=== PATIENT | female | born 1965 | race Caucasian/White ===

== ENCOUNTER 2018-06-13 07:38 | Day surgery (SDC) | payer OTHER ==
[2018-06-07 15:01] VITALS: BMI 26.9
[2018-06-13] MEDS ORDERED: MIDAZOLAM HCL 2 MG/2 ML SINGLE DOSE VIAL ONE (08:39)
[2018-06-13] MEDS ORDERED: BUPIVACAINE HCL/PF 2.5 MG/ML - 30 ML VIAL IJ ONE (08:41)
[2018-06-13] MEDS ORDERED: ONDANSETRON 4 MG/2 ML VIAL ONE ×2 (09:01→09:32)
[2018-06-13] MEDS ORDERED: DEXAMETHASONE SOD PHOSPHATE 4 MG/1 ML VIAL ONE (09:01)
[2018-06-13] MEDS ORDERED: KETOROLAC TROMETHAMINE 30 MG/1 ML VIAL ONE (09:01)
[2018-06-13] MEDS ORDERED: ePHEDrine SULFATE 50 MG/1 ML AMPULE ONE (09:01)
[2018-06-13] MEDS ORDERED: ONDANSETRON 4 MG/2 ML VIAL IVPUSH PRN (09:41)
[2018-06-13] MEDS ORDERED: PROMETHAZINE HCL 25 MG/1 ML VIAL IVPUSH PRN (09:41)
[2018-06-13] MEDS ORDERED: oxyCODONE HCL 5 MG TABLET PO PRN ×2 (09:41)
--- NOTE | 2018-06-13 09:53 | OP ---
DATE OF OPERATION: 06/13/2018 PREOPERATIVE DIAGNOSES: 1. Right carpal tunnel syndrome. 2. Right thumb trigger finger. POSTOPERATIVE DIAGNOSES: 1. Right carpal tunnel syndrome. 2. Right thumb trigger finger. OPERATIVE PROCEDURE: 1. Right endoscopic carpal tunnel release. 2. Right thumb trigger finger release. ANESTHESIA: General. COMPLICATIONS: None. ESTIMATED BLOOD LOSS: Minimal. INDICATIONS FOR PROCEDURE: The patient is a 53-year-old female with the above findings indicated for operative treatment. Of note, she had mentioned to me in the office that her thumb was starting to cause pain, but it has evolved and now is actively triggering. On examination, she has a trigger thumb. I discussed the options of this with her, and she decided that since we were operating on this hand, she would like to have the trigger thumb release done at the same time, so we decided to proceed with a right endoscopic carpal tunnel release and a right trigger thumb release. Risks, benefits, and alternatives of both procedures were discussed with the patient at length, and proper informed consent was obtained. DESCRIPTION OF PROCEDURE: After preoperative identification of the patient, correct operative site, patient was brought to the operating room, placed supine on the table with bony prominences were padded. General anesthesia was given. Right upper extremity was prepped and draped in the usual sterile fashion. A well-padded tourniquet was placed over the sterile prep. Esmarch bandage used to exsanguinate right upper extremity. Tourniquet was inflated to 250 mmHg. Transverse incision made over the proximal wrist crease ulnar to the palmaris longus tendon to protect the palmar cutaneous nerve. The antebrachial fascia was divided and the carpal canal was entered. Hamate finder dilators were used to prepare the canal, and an elevator was used to free any soft tissue off the undersurface of the transverse carpal ligament. MicroAire endoscopic carpal tunnel release system was then used and inserted to the distal edge of the transverse carpal ligament. At all points throughout the procedure, excellent visualization was achieved, and at no point was any soft tissue allowed to interpose between the transverse carpal ligament and the blade. The blade was then deployed and the transverse carpal ligament was divided, and the distal 4 cm of the antebrachial fascia were also divided under direct visualization. This provided complete release of the median nerve at the wrist. The wound was repaired with 4-0 Monocryl suture. Steri-Strips were placed. A second transverse incision was made over the right thumb A1 alayna. Incision was taken sharply through the skin with blunt dissection of subcutaneous tissues. A1 alayna was identified and divided longitudinally. Thumb was flexed, and there was no tendon excursion without any catching. Wound was irrigated and repaired with 5-0 fast-absorbing plain gut suture. Sterile dressings were applied. Patient was brought to recovery in stable condition. She tolerated the procedure well. DEMETRA AUGUST M.D. [id number]
[2018-06-13 12:13] VITALS: PULSE 58; TEMP 97.3
[2018-06-13 12:16] VITALS: BP 106/62
== END 2018-06-13 10:55 | disposition home or self-care (01) ==
LOC: FASU 07:38
PROVIDERS: ATTEND Orthopaedic Surgery Hand Surgery
PROC: 0LN70ZZ Release Right Hand Tendon, Open Approach (ICD-10-PCS; 2018-06-13)
PROC: 01N50ZZ Release Median Nerve, Open Approach (ICD-10-PCS; principal; 2018-06-13 09:03)
DX: G56.01 Carpal tunnel syndrome, right upper limb (principal); M65.311 Trigger thumb, right thumb
CPT/HCPCS: 84703; 94760

== ENCOUNTER 2018-10-03 06:15 | Day surgery (SDC) | payer OTHER ==
[2018-09-26 10:29] VITALS: BMI 25.7
[2018-10-03] MEDS ORDERED: SUCCINYLCHOLINE CHLORIDE 200 MG/10 ML SYRINGE ONE (07:08)
[2018-10-03] MEDS ORDERED: PROPOFOL 20 ML ONE ×3 (07:08)
[2018-10-03] MEDS ORDERED: MIDAZOLAM HCL 2 MG/2 ML SINGLE DOSE VIAL ONE (07:08)
[2018-10-03] MEDS ORDERED: BUPIVACAINE HCL 0.25% 125 MG/50 ML VIAL ONE (07:14)
[2018-10-03] MEDS ORDERED: DEXAMETHASONE SOD PHOSPHATE 4 MG/1 ML VIAL ONE (07:19)
[2018-10-03] MEDS ORDERED: ceFAZolin SODIUM 1 GM VIAL ONE (07:19)
[2018-10-03] MEDS ORDERED: ONDANSETRON 4 MG/2 ML VIAL ONE ×2 (07:19→09:48)
[2018-10-03] MEDS ORDERED: ePHEDrine SULFATE 50 MG/1 ML AMPULE ONE (08:04)
[2018-10-03] MEDS ORDERED: GUM MASTIC/STORAX/MSAL/ALCOHOL 1 DRP DROPSBTL MC ONE (08:25)
[2018-10-03] MEDS ORDERED: oxyCODONE HCL 5 MG TABLET PO PRN (08:59)
[2018-10-03] MEDS ORDERED: ONDANSETRON 4 MG/2 ML VIAL IVPUSH PRN (08:59)
[2018-10-03] MEDS ORDERED: PROMETHAZINE HCL 25 MG/1 ML VIAL IVPUSH PRN (08:59)
[2018-10-03] MEDS ORDERED: oxyCODONE HCL 5 MG TABLET ONE ×2 (09:21→10:39)
[2018-10-03] MEDS: oxyCODONE HCL 5 MG TABLET PO PRN ×2 (09:22→10:40)
[2018-10-03 12:27] VITALS: TEMP 97.5
[2018-10-03 12:35] VITALS: BP 100/64; PULSE 58
--- NOTE | 2018-10-04 09:09 | OP ---
DATE OF OPERATION: 10/03/2018 PREOPERATIVE DIAGNOSIS: Left carpal tunnel syndrome. POSTOPERATIVE DIAGNOSIS: Left carpal tunnel syndrome. OPERATIVE PROCEDURE: Left carpal tunnel release, endoscopic. SURGEON: Branden Paul MD CLINICAL ALLERGIST: RONNELL Winslow ANESTHESIA: General. COMPLICATIONS: None. ESTIMATED BLOOD LOSS: Minimal. INDICATIONS FOR PROCEDURE: The patient is a 53-year-old female with the above findings, indicated for operative treatment. The risks, benefits, and alternatives were discussed with the patient at length, and proper informed consent was obtained. PROCEDURE: After proper identification of the patient and the correct operative site, the patient was brought to the operating room and placed supine on the operating table with prominences well padded. General anesthesia was provided by the anesthesiologist and adequate for the procedure. Left upper extremity was prepped and draped in the usual sterile fashion. Esmarch bandage used to exsanguinate the right upper extremity. Tourniquet inflated to 250 mmHg. Using previously drawn anatomic landmarks, a transverse incision made over the proximal wrist crease. Incision was taken sharply through the skin extending only to the palmaris longus tendon to protect the palmar cutaneous nerve. The antebrachial fascia was identified and divided transversely and elevated. The MicroAire Endoscopic Carpal Tunnel Release System was then used. Elevator was used to repair the canal along with hamate finders and dilators. This was done bluntly and gently. The endoscope was then inserted through the distal aspect of the transverse carpal ligament, which was positively identified visually as well as palpably. The blade was then deployed, and the transverse carpal ligament was released. At all times throughout the procedure, excellent visualization was achieved, and at no time was any soft tissue allowed to interpose between the transverse carpal ligament and the blade. Using a mini-open technique, the distal 4 cm of antebrachial fascia were then also divided to complete the release of the median nerve at the wrist. Wound was irrigated with saline and repaired with 5-0 Monocryl suture. Sterile dressings were applied. The patient was brought to the recovery room in stable condition. She tolerated the procedure well. Nely ELLSWORTH/[id number]
== END 2018-10-03 11:30 | disposition home or self-care (01) ==
LOC: FASU 06:15
PROVIDERS: ATTEND Orthopaedic Surgery Hand Surgery
PROC: 01N54ZZ Release Median Nerve, Percutaneous Endoscopic Approach (ICD-10-PCS; principal; 2018-10-03 08:15)
DX: G56.02 Carpal tunnel syndrome, left upper limb (principal)
CPT/HCPCS: 81025; 94760

== ENCOUNTER 2020-01-08 06:41 | Day surgery (SDC) | payer OTHER ==
--- OUTSIDE RECORDS SUMMARY | 2019-12-18 08:18 | XMS ---
:1965 Author Organization [facility] Care Team Providers Name Role Phone Leonel Carrera MD Unavailable Unavailable Florence Archibald MD Unavailable Unavailable Shavonne Haywood MD Unavailable Unavailable Saúl Crain MD Unavailable Unavailable Humphrey Fernández MD Unavailable Unavailable Re-disclosure Warning The records that you are about to access may contain information from federally- assisted alcohol or drug abuse programs. If such information is present, then the following federally mandated warning applies: This information has been disclosed to you from records protected by federal confidentiality rules (42 CFR part 2). The federal rules prohibit you from making any further disclosure of this information unless further disclosure is expressly permitted by the written consent of the person to whom it pertains or as otherwise permitted by 42 CFR part 2. A general authorization for the release of medical or other information is NOT sufficient for this purpose. The Federal rules restrict any use of the information to criminally investigate or prosecute any alcohol or drug abuse patient.The records that you are about to access may contain highly sensitive health information, the redisclosure of which is protected by Article 27-F of the [facility] Public Health law. If you continue you may haveaccess to information: Regarding HIV / AIDS; Provided by facilities licensed or operated by the [facility] Office of Mental Health; or Provided by the [facility] Office for People With Developmental Disabilities. If such information is present, then the following [facility] mandated warning applies: This information has been disclosed to you from confidential records which are protected by state law. State law prohibits you from making any further disclosure of this information without the specific written consent of the person to whom it pertains, or as otherwise permitted by law. Any unauthorized further disclosure in violation of state law may result in a fine or fdc sentence or both. A general authorization for the release of medical or other information is NOT sufficient authorization for further disclosure. Encounters Encounter Providers Location Date Indications Data Source(s ) Outpatient Attender: Leonel 11/27/2019 Chronic pain in [place] [facility] YAN 07:00:00 AM left foot Hospital EDT (M79.672,G89.29)no prev Chronic pain in left foot (M79.672,G89.2 9)no prev Outpatient Attender: Florence 10/29/2019 04:29:00 SLEEP APNE A [place] MDAttender: PM EDT Hospit al Saúl Breann MDReferrer: Saúl Crain MD SLEEP APNEA Outpatient Attender: Saúl 09/18/2019 03:57:00 DYSPNEA ON [place] Y[facility] PM EDT EXERTION Hospital DYSPNEA ON EXERTION Outpatient Attender: Humphrey 07/15/2019 DIAGNOSTIC [place] [facility] 03:00:00 PM EDT [facility]ED [facility] Hospital MDAttender: Shavonne Haywood MD DIAGNOSTIC TARGETED RIGHT Outpatient Attender: Shavonne 01/02/2019 10:05:00 AM SOB [facility] YAN EDT SOB Outpatient Attender: Shavonne 12/26/2018 07:37:00 RTNE M/S RX OP [place] [facility] AM EDT DM Hospital [place] M/[place] [facility] [place] Providers Payer name Policy type Policy ID Covered Covered democrat's Policy P fritz / Coverage democrat ID relationship to Castañeda Inf ormation type castañeda [place] [id number] PT [id number] [facility] [id number] PT [id number] [address] [facility] [place] [id number] PT [id number] [facility] [id number] PT [id number] 400 [facility] [id number] PT [id number] 400 [facility] MEDICAID [id number] [place] [id number] [facility] MEDICARE [id number] [place] [id number] Problems, Conditions, and Diagnoses Code Display Name Description Problem Type Effective Dates Data Source(s) M19.072 Primary M19.072 Diagnosis 11/27/2019 [place] osteoarthritis, left 06:46:00 AM EDT Hospital ankle and foot M85.672 Other cyst of bone, M85.672 Diagnosis 11/27/2019 [facility] left ankle and foot 06:46:00 AM EDT Hospital J45.909 Unspecified asthma, J45.909 Diagnosis 09/18/2019 [place] uncomplicated 03:57:00 PM EDT Hospit al Z03.89 Encounter for Z03.89 Diagnosis 07/15/2019 [place] observation for 02:27:00 PM EDT Hosp ital other suspected diseases and conditions ruled out I25.9 Chronic ischemic I25.9 Diagnosis 01/02/[address] [place] heart disease, 10:05:00 AM EDT Hospi belkis unspecified R06.02 Shortness of breath R06.02 Diagnosis 01/02/2019 [place] 10:05:00 AM EDT Hospital Z80.3 Family history of Z80.3 Diagnosis 12/26/2018 [place] malignant neoplasm 07:37:00 AM EDT H ospital of breast R92.2 Inconclusive R92.2 Diagnosis 12/26/2018 [place] mammogram 07:37:00 AM EDT Hospital N60.01 Solitary cyst of N60.01 Diagnosis 12/26/[address] [place] right breast 07:37:00 AM EDT Hospita l Z12.31 Encounter for Z12.31 Diagnosis 12/26/2018 [facility] [place] [facility] screening mammogram 07:37:00 AM EDT Hospital for malignant neoplasm of breast Results ID Date Data Source [id number] 06/12/2019 12:00:00 AM EDT [facility] Name Value Range Interpretation Code Description Data [facility] Supporting Document(s ) 2019-nCoV [facility] RNA XXX MEGAN+probe- Imp This lab was ordered by [facility] and reported by [employer] Procedure
[2020-01-02 09:07] VITALS: BMI 27.4
--- OUTSIDE RECORDS SUMMARY | 2020-01-08 06:45 | XMS ---
:1965 Author Organization [facility] Care Team Providers Name Role Phone Leonel Carrera MD Unavailable Unavailable Florence Archibald MD Unavailable Unavailable Saúl Crain MD Unavailable Unavailable Shavonne Haywood MD Unavailable Unavailable Humphrey Fernández MD Unavailable [...] is protected by Article 27-F of the [facility] Public Health law. If you continue you may haveaccess to information: Regarding HIV / AIDS; Provided by facilities licensed or operated by the [facility] Office of Mental Health; or Provided by the [facility] Office for People With Developmental Disabilities. If such information is present, then the following [facility] mandated warning applies: This information has been [...] law may result in a fine or half-way sentence or both. A general authorization for the release of medical or other information is NOT sufficient authorization for further disclosure. Encounters Encounter Providers Location Date Indications Data Source(s ) Outpatient Attender: Shavonne 12/30/2019 SCREENING [facility] [facility] Haywood MD 09:00:00 AM MAMMO/SONO Hospital EDT SCRE[facility]ING [facility] MAMMO/SONO Outpatient Attender: Leonel 11/27/2019 Chronic pain in left foot [facility] Carrera MD 07:00:00 AM EDT (M79.672,G89.29)no prev Hospital Chronic pain in left foot (M79.672,G89.2 9)no prev Outpatient Attender: Florence 10/29/2019 04:29:00 SLEEP APNE A [place] MDAttender: PM EDT Hospit al Saúl Crain MDReferrer: Saúl Crain MD SLEEP APNEA Outpatient Attender: Saúl 09/18/2019 03:57:00 DYSPNEA ON [place] YAN PM EDT EXERTION Hospital DYSPNEA ON EXERTION Outpatient Attender: Humphrey 07/15/2019 DIAGNOSTIC [place] 03:00:00 PM EDT TARGETED RIGHT Hospital MDAttender: Shavonne Haywood MD DIAGNOSTIC TARGETED RIGHT US Outpatient Attender: Shavonne 01/02/2019 10:05:00 AM SOB [facility] YAN EDT SOB Outpatient Attender: Shavonne 12/26/2018 07:37:00 RTNE M/S RX OP [place] [facility] YAN AM EDT DM Hospital RTNE M/S RX OP G Insurance Providers Payer name Policy type Policy ID Covered Covered republican's Policy P fritz / Coverage republican ID relationship to Castañeda Inf ormation type castañeda [facility] MEDICAID [id number] SP [id number] [facility] [id number] PT [id number] 400 [facility] [id number] PT [id number] 400 [facility] [id number] PT [id number] 400 [facility] [id number] PT [id number] 400 [facility] [id number] PT [id number] 400 [facility] [id number] PT [id number] 400 [facility] [place]ICAID [id number] [place] [id number] [employer] MEDICARE [id number] Problems, Conditions, and Diagnoses Code Display Name Description Problem Type Effective Dates Data Source(s) M19.072 Primary M19.072 Diagnosis 11/27/2019 [place] osteoarthritis, left 06:46:00 AM EDT Hospital ankle and foot M85.672 Other cyst of bone, M85.672 Diagnosis 11/27/2019 [place] left ankle and foot 06:46:00 AM EDT Hospital J45.909 Unspecified asthma, J45.909 Diagnosis 09/18/2019 [place] uncomplicated 03:57:00 PM EDT Hospit al Z03.89 Encounter for Z03.89 Diagnosis 07/15/2019 [facility] s observation for 02:27:00 PM EDT Hosp ital other suspected diseases and conditions ruled out I25.9 Chronic ischemic I25.9 Diagnosis 01/02/[address] [place] [address] [place] heart disease, 10:05:00 AM EDT Hospi belkis unspecified R06.02 Shortness of breath R06.02 Diagnosis 01/02/2019 [place] 10:05:00 AM EDT Hospital Z80.3 Family history of Z80.3 Diagnosis 12/26/2018 [place] malignant neoplasm 07:37:00 AM EDT H ospital of breast R92.2 Inconclusive R92.2 Diagnosis 12/26/2018 [place] mammogram 07:37:00 AM EDT Hospital N60.01 Solitary cyst of N60.01 Diagnosis 12/26/[address] [place] right breast 07:37:00 AM EDT Hospita l Z12.31 Encounter for Z12.31 Diagnosis 12/26/2018 [facility] s screening mammogram 07:37:00 AM EDT Hospital for malignant neoplasm of breast Results ID Date Data Source [id number] 01/04/2020 12:10:00 PM EDT [facility] Name Value Range Interpretation Description Data Sup porting Code Source(s) Document(s ) SARS [facility] coronavirus 2 RNA This lab was ordered by [facility] and reported by [facility]. ID Date Data Source [id number] 06/12/2019 12:00:00 AM EDT [facility] Name Value Range Interpretation Code Description Data [facility]sa rce(s) Supporting Document(s ) 2019-nCoV [facility] RNA XXX MEGAN+probe- Imp This lab was ordered by [facility] and reported by [employer] Procedure
[2020-01-08] MEDS ORDERED: LIDOCAINE HCL 2% (20ML MULTI-DOSE VIAL) ONE (07:19)
[2020-01-08] MEDS ORDERED: ONDANSETRON 4 MG/2 ML VIAL IVPUSH PRN (07:59)
[2020-01-08] MEDS ORDERED: oxyCODONE HCL 5 MG TABLET PO PRN ×2 (07:59)
[2020-01-08] MEDS ORDERED: ACETAMINOPHEN 325 MG TABLET (FP) PO PRN (07:59)
[2020-01-08] MEDS ORDERED: LACTATED RINGERS SOLUTION 1,000 ML IV SCH (08:00)
[2020-01-08] MEDS ORDERED: ONDANSETRON 4 MG/2 ML VIAL ONE (08:07)
[2020-01-08] MEDS ORDERED: MIDAZOLAM HCL 2 MG/2 ML SINGLE DOSE VIAL ONE ×2 (08:07)
[2020-01-08] MEDS ORDERED: DEXAMETHASONE SOD PHOSPHATE 4 MG/1 ML VIAL ONE (08:07)
[2020-01-08] MEDS ORDERED: PROPOFOL 20 ML ONE (08:07)
[2020-01-08 09:09] VITALS: TEMP 97.8
[2020-01-08 09:31] VITALS: BP 108/67; PULSE 64
--- NOTE | 2020-01-08 11:29 | OP ---
DATE OF OPERATION: 01/08/2020 PREOPERATIVE DIAGNOSES: 1. Left thumb trigger finger. 2. Left long trigger finger. POSTOPERATIVE DIAGNOSES: 1. Left thumb trigger finger. 2. Left long trigger finger. OPERATIVE PROCEDURE: 1. Left thumb trigger finger release. 2. Left long trigger finger release. SURGEON: Branden August MD ANESTHESIA: Local with sedation. COMPLICATIONS: None. ESTIMATED BLOOD LOSS: Minimal. INDICATIONS FOR PROCEDURE: Frnri[age]huvo[age]ehnh-old female with the above finding indicated for operative treatment. Risks, benefits, alternatives were discussed with her at length. Proper informed consent was obtained. DESCRIPTION OF PROCEDURE: After preoperative identification of the patient, correct operative site, patient brought to the operating room and placed on the table with all prominences well padded. Sedation and local anesthesia were given. Left upper extremity was prepped and draped in sterile fashion. Well-padded tourniquet was placed over the sterile prep. Esmarch bandage used to exsanguinate the left upper extremity. Tourniquet was inflated to 250 mmHg. Longitudinal incision was made over the A1 alayna of the long finger, transverse incision over the A1 alayna to the thumb. Both incisions were made with sharp incision, with blunt dissection down to the A1 alayna. A1 pulleys were identified, then the neurovascular structures were carefully dissected. The A1 pulleys were divided. Patient was asked to flex and extend both of the fingers, and no further triggering occurred. Wounds were repaired with 5-0 fast-absorbing plain gut suture as well as Dermabond. Sterile dressings were applied. Patient brought to the recovery room in stable condition. She tolerated the procedure well. BRANDEN AUGUST M.D. [id number]
== END 2020-01-08 09:35 | disposition home or self-care (01) ==
LOC: FASU 06:41
PROVIDERS: ATTEND Orthopaedic Surgery Hand Surgery
PROC: 0LN80ZZ Release Left Hand Tendon, Open Approach (ICD-10-PCS; 2020-01-08)
PROC: 0LN80ZZ Release Left Hand Tendon, Open Approach (ICD-10-PCS; principal; 2020-01-08 08:24)
DX: M65.312 Trigger thumb, left thumb (principal); M65.322 Trigger finger, left index finger

== ENCOUNTER 2020-02-10 10:07 | Emergency (ER) | payer OTHER | END 2020-02-10 12:58 | disposition home or self-care (01) | LOC: JVIRT 10:07 | DX: Z11.59 Encounter for screening for other viral diseases (principal) | CPT/HCPCS: C9803; G2012-GT; U0003 ==